=== PATIENT | female | born 1990 | race Caucasian/White ===

== ENCOUNTER 2025-03-16 19:15 | Inpatient (IN) | payer BC, SELFPAY ==
[2025-03-16 19:39] VITALS: BMI 31.7
[2025-03-16 19:40] VITALS: BP 125/82
[2025-03-16 19:55] LABS: % Basophils 0.3 % (0-2); % Eosinophils 1.1 % (0-6); % Immature Granulocytes 0.8 % (0-0.5); % Lymphocytes 14.2 % (20.5-51.1); % Neutrophils 77.6 % (42.2-75.2); Absolute Eosinophils 0.2 10^3/uL (0-0.7); Absolute Immature Granulocytes 0.1 10^3/uL (0-0.05); Absolute Monocytes 0.8 10^3/uL (0.1-0.6); Absolute Neutrophils 10.8 10^3/uL (1.4-6.5); Hematocrit 37.8 % (37.0-47.0); Mean Corp Hgb Conc. 34.4 g/dL (33.0-37.0); Mean Corpuscular Hgb 29.3 pg (27.0-31.0); Mean Corpuscular Volume 85.1 fL (81.0-99.0); Mean Platelet Volume 10.2 fL (7.4-10.4); Nucleated Red Blood Cells % 0 %; Platelet Count 213 10^3/uL (130-400); Red Blood Cell Count 4.44 10^6/uL (4.20-5.40); Red Cell Dist. Width 13.2 % (11.5-14.5); White Blood Cell Count 13.9 10^3/uL (4.8-10.8)
[2025-03-16] MEDS: CYTOTEC 25 MICROGRAM VAG (20:25)
[2025-03-17] MEDS: LR 1000 IV ×3 (01:11→21:14)
[2025-03-17] MEDS: ZOFRAN 4 MG IV (01:40)
[2025-03-17] MEDS: SUBLIMAZE 100 MCG EPIDURAL (03:13)
[2025-03-17] MEDS: FENTANYL/BUPIVACAINE 100 EPIDURAL ×3 (03:13→20:46)
--- NOTE | 2025-03-17 04:21 | DOWNTIME ---
Addendum entered and electronically signed by Froy Landin RN 03/17/25 14:02:
Correction: Downtime was 03/17/2025 from 0100 to 03/17/2025 at 0415
Original Note:
There was a [employer] Downtime on 03/16/2025 from 0100 to 03/17/2025 at 0415. Downtime documentation of patient's care, including medication administrations, has been reconciled in the electronic record per guidelines. Refer to the
patient's paper chart under the miscellaneous tab to see printed paper medication records and downtime forms.
[2025-03-17] MEDS: PITOCIN 30 UNITS/NSS 500 ML IV (08:33)
[2025-03-17] MEDS: ANCEF 10 IV (23:05)
[2025-03-17] MEDS: TYLENOL 1000 MG PO (23:05)
[2025-03-17] MEDS: ZITHROMAX INFUSION 250 IV (23:05)
[2025-03-18] MEDS: TORADOL 15 MG IV ×2 (05:54→12:49)
--- NOTE | 2025-03-18 07:58 | W.PN.ANS.POP ---
Anesthesia Post Operative
- Anesthesia Post Op Note
Vital Signs Stable-See Nursing Note: Yes
Airway Patent: Yes
Adequate Pain Control: Yes
Change in Mental Status: No
Current Postoperative Nausea & Vomiting: No
Anesthesia Complications: No
General Anesthetic Recall: No
Unplanned Admission: No
Post Op Hydration Adequate: Yes
[2025-03-18] MEDS: SENOKOT-S 1 TABLET PO (08:09)
[2025-03-18] MEDS: MYLICON 80 MG PO (08:09)
[2025-03-18 09:33] LABS: Hematocrit 32.2 % (37.0-47.0); Mean Corp Hgb Conc. 34.2 g/dL (33.0-37.0); Mean Corpuscular Hgb 29.8 pg (27.0-31.0); Mean Corpuscular Volume 87.3 fL (81.0-99.0); Mean Platelet Volume 10.3 fL (7.4-10.4); Platelet Count 160 10^3/uL (130-400); Red Blood Cell Count 3.69 10^6/uL (4.20-5.40); Red Cell Dist. Width 13.5 % (11.5-14.5); White Blood Cell Count 27.5 10^3/uL (4.8-10.8)
[2025-03-18 10:09] LABS: % Basophils 0.2 % (0-2); % Immature Granulocytes 0.6 % (0-0.5); % Monocytes 3.1 % (1.7-9.3); % Neutrophils 92.1 % (42.2-75.2); Absolute Basophils 0.1 10^3/uL (0-0.2); Absolute Immature Granulocytes 0.2 10^3/uL (0-0.05); Absolute Lymphocytes 1.1 10^3/uL (1.2-3.4); Absolute Monocytes 0.9 10^3/uL (0.1-0.6); Absolute Neutrophils 25.4 10^3/uL (1.4-6.5); Nucleated Red Blood Cells % 0 %
[2025-03-18] MEDS: TORADOL IV (18:32)
[2025-03-18] MEDS: MOTRIN 600 MG PO (19:40)
[2025-03-19] MEDS: TYLENOL 650 MG PO ×3 (01:02→11:45)
[2025-03-19] MEDS: MOTRIN 600 MG PO ×2 (01:48→07:49)
[2025-03-19] MEDS: MYLICON 80 MG PO (07:49)
[2025-03-19] MEDS: SENOKOT-S 1 TABLET PO (07:49)
[2025-03-19 14:00] LABS: Syphilis/T. pallidum Ab Reflex Negative (Negative)
--- NOTE | 2025-03-24 00:45 | W.IMMPOSTOP ---
Surgical Immed Post Op Note
-
Primary Surgeon: Kimberley Martinez DO
Assisting Surgeon: none
Pre-op Diagnosis: Term 40.6 wks; arrest of dilation and descent
Post-op Diagnosis: same
Procedure Performed: Primary LTCS
Anesthesia Type: epidural
Specimen / Cultures: none
Estimated Blood Loss: 1140mL (reported by nurse but I feel this was overestimated based on what was seen during surgery. Possible that lap sponges weighed were not wrung out completely). She remained hemodynamically stable throughout procedure.
Complications: none
Virgen clear yellow urine.
Operative Findings: Liveborn male, Apgars 8&9, weight 8lb9oz from LOT position. Clear amniotic fluid. Delayed cord clamping performed. Normal appearing uterus, tubes and ovaries bilaterally. Placenta normal in appearance.
Complications: none
Counts correct times 2.
Stable to recovery.
== END 2025-03-19 12:16 | disposition home or self-care (01) | DRG 788 ==
LOC: LDRP 19:15
PROVIDERS: Obstetrics & Gynecology; ADMITTING PHYSICIAN Student in an Organized Health Care Education/Training Program
PROC: 3E0P7VZ Introduction of Hormone into Female Reproductive, Via Natural or Artificial Opening (ICD-10-PCS; 2025-03-16)
PROC: 10D00Z1 Extraction of Products of Conception, Low, Open Approach (ICD-10-PCS; 2025-03-17)
PROC: 3E033VJ Introduction of Other Hormone into Peripheral Vein, Percutaneous Approach (ICD-10-PCS; 2025-03-17)
DX: O48.0 Post-term pregnancy (principal); Z3A.40 40 weeks gestation of pregnancy; O62.1 Secondary uterine inertia; Z37.0 Single live birth
CPT/HCPCS: 36415; 85025; 86780; 86850; 86900; 86901